=== PATIENT | female | born 1960 | race African-American/Black ===

== ENCOUNTER 2020-02-13 19:43 | Emergency (ER) | payer BC ==
[~2020-02-13] VITALS: Ht 160 cm; Wt 72.0 kg
[~2020-02-13 19:43] MED LIST: TRIA1CAP6 PO
[2020-02-13 21:30] LABS: CLARITY URINE CLOUDY (CLEAR); KETONES URINE TRACE (NEGATIVE); LEUKOCYTE ESTERASE URINE 2+ (NEGATIVE); NITRITE URINE POSITIVE (NEGATIVE); OCCULT BLOOD URINE 3+ (NEGATIVE); PROTEIN URINE 4+ (NEGATIVE); SPECIFIC GRAVITY URINE 1.018 (1.005-1.030); UROBILINOGEN URINE 0.2 E.U./dL (0.2-1.0)
[2020-02-13 21:35] LABS: COLOR URINE BLOODY (YELLOW)
[2020-02-13 22:10] VITALS: BP 149/79
== END 2020-02-13 22:11 | disposition home or self-care (01) ==
LOC: ER 19:43
DX: N30.91 Cystitis, unspecified with hematuria (principal); I10 Essential (primary) hypertension; Z85.820 Personal history of malignant melanoma of skin; Z90.49 Acquired absence of other specified parts of digestive tract; Z79.899 Other long term (current) drug therapy
CPT/HCPCS: 81003; 99283

== ENCOUNTER 2024-11-25 12:34 | Inpatient (IN) | payer BC ==
[~2024-11-25] VITALS: Ht 157.5 cm; Wt 66.7 kg
[2024-11-25] MEDS: MEROPENEM 500MG/50ML IV SCH (06:00)
[2024-11-25] MEDS ORDERED: VANCOMYCIN 1G PREMIX 200 ML IV ONE (12:45)
[2024-11-25 14:01] LABS: HEMOGLOBIN. 10.5 g/dL (12.0-16.0); MEAN CORPUSCULAR HEMOGLOBIN 27.2 pg (28.0-32.0); MEAN CORPUSCULAR HGB CONC 30.1 g/dL (31.0-37.0); MEAN CORPUSCULAR VOLUME 90.5 fL (81.0-99.0); MEAN PLATELET VOLUME 8.9 fl (7.4-10.4); PLATELET 248 x1000/uL (130-400); RED BLOOD CELL COUNT 3.87 mill/uL (4.2-5.4); RED CELL DISTRIBUTION WIDTH 26.4 % (11.6-14.6); WHITE BLOOD COUNT 12.7 x1000/uL (4.5-11.0)
[2024-11-25 14:05] LABS: DIFFERENTIAL COMMENT 1
[2024-11-25 14:10] LABS: CHLORIDE 94 mEq/L (98-107); SODIUM 130 mEq/L (136-145)
[2024-11-25] MEDS: SODIUM CHLORIDE 0.9% (SEPSIS BOLUS) IV ONE (14:10)
[2024-11-25 14:12] LABS: CALCIUM 8.5 mg/dL (8.7-10.4)
[2024-11-25 14:15] LABS: INR 2.6; PROTHROMBIN TIME 25.5 sec (9.6-11.0)
[2024-11-25 14:16] LABS: CREATININE 2.8 mg/dL (0.6-1.0); GLUCOSE 54 mg/dL (70-105)
[2024-11-25 14:17] LABS: UREA NITROGEN BLOOD 63 mg/dL (9-23)
[2024-11-25 14:26] LABS: CARBON DIOXIDE < 10 mEq/L (21-32); POTASSIUM 6.5 mEq/L (3.5-5.1)
[2024-11-25] MEDS ORDERED: FUROSEMIDE 100MG/10ML VIAL IV STA (14:44)
[2024-11-25] MEDS: MEROPENEM 1G/100ML 100 ML IV ONE (14:52)
[2024-11-25 15:05] LABS: NUCLEATED RED BLOOD CELLS 3 /100 WBC
[2024-11-25 15:08] LABS: ANISOCYTOSIS 3+; HYPOCHROMASIA 2+; PLATELET ESTIMATE NORMAL
[2024-11-25] MEDS: FUROSEMIDE 40MG/4ML VIAL IV NR (15:50)
[2024-11-25] MEDS: VANCOMYCIN 1G PREMIX 200 ML IV NR (15:50)
[2024-11-25] MEDS ORDERED: DOCUSATE SODIUM 100MG CAPSULE PO PRN (16:30)
[2024-11-25] MEDS ORDERED: MEROPENEM 1,000 MG in SODIUM CHLORIDE 0.9% 100 ML IV SCH (16:30)
[2024-11-25] MEDS ORDERED: IPRATROPIUM/ALBUTEROL 0.5-3(2.5)MG/3ML NEB HHN PRN (16:30)
[2024-11-25] MEDS ORDERED: HYDRALAZINE 20MG/ML VIAL IV PRN (16:30)
[2024-11-25] MEDS ORDERED: ACETAMINOPHEN 325MG TABLET PO PRN (16:30)
[2024-11-25] MEDS ORDERED: MAGNESIUM/ALUMINUM HYDROXIDE/SIMETHICONE 30ML UDC PO PRN (16:30)
[2024-11-25] MEDS ORDERED: MEROPENEM 500MG/50ML IV SCH (17:00)
[2024-11-25 17:11] LABS: CLARITY URINE CLOUDY (CLEAR); COLOR URINE YELLOW (YELLOW); GLUCOSE URINE NEGATIVE (NEGATIVE); KETONES URINE NEGATIVE (NEGATIVE); LEUKOCYTE ESTERASE URINE NEGATIVE (NEGATIVE); NITRITE URINE NEGATIVE (NEGATIVE); OCCULT BLOOD URINE TRACE (NEGATIVE); PROTEIN URINE 1+ (NEGATIVE); SPECIFIC GRAVITY URINE 1.013 (1.005-1.030)
[2024-11-25 17:13] LABS: SODIUM URINE RANDOM 44 mEq/L
[2024-11-25] MEDS: ALBUTEROL (0.083%) 2.5MG/3ML NEB HHN NR (17:15)
[2024-11-25] MEDS ORDERED: INSULIN REGULAR (HUMULIN R) 1000UNITS/10ML VIAL IV ONE (17:15)
[2024-11-25 17:22] LABS: BACTERIA URINE 1+; RBC URINE 0-2 /hpf (0-2); SQUAMOUS EPITHELIAL CELL URINE 1+ /lpf (RARE/1+); WBC URINE 0-2 /hpf (0-2); YEAST URINE NONE SEEN
[2024-11-25 17:27] LABS: OSMOLALITY URINE 346 mOsm/kg (500-850)
[2024-11-25] MEDS: CALCIUM CHLORIDE 1GM/10ML SYR IV ONE (17:52)
[2024-11-25] MEDS: DEXTROSE 50% WATER 50ML SYRINGE IV ONE ×2 (17:53→17:55)
[2024-11-25] MEDS: SODIUM BICARBONATE 8.4% 50MEQ/50ML SYR IV ONE (17:53)
[2024-11-25] MEDS: INSULIN REGULAR (HUMULIN R) 1000UNITS/10ML VIAL IV ONE (17:53)
[2024-11-25] MEDS ORDERED: IPRATROPIUM/ALBUTEROL 0.5-3(2.5)MG/3ML NEB HHN SCH (18:00)
[2024-11-25] MEDS: CALCIUM CHLORIDE 1GM/10ML SYR IV NR (18:12)
[2024-11-25] MEDS: DEXTROSE 50% WATER 50ML SYRINGE IV NR (18:12)
[2024-11-25] MEDS: INSULIN REGULAR (HUMULIN R) 1000UNITS/10ML VIAL IV NR (18:13)
[2024-11-25] MEDS: VANCOMYCIN 500MG/100ML IV NR (18:13)
[2024-11-25] MEDS: SODIUM BICARBONATE 8.4% 50MEQ/50ML SYR IV NR (18:13)
[2024-11-25] MEDS: DEXT 5%/0.9% NACL 1,000 ML IV SCH (18:28)
[2024-11-25] MEDS ORDERED: IPRATROPIUM BROMIDE (0.02%) 0.5MG/2.5ML NEB HHN PRN (18:30)
[2024-11-25 18:55] VITALS: PULSE 99; RESP 24; O2SAT 99
[2024-11-25] MEDS: IPRATROPIUM BROMIDE (0.02%) 0.5MG/2.5ML NEB HHN SCH (18:55)
[2024-11-25] MEDS: BUDESONIDE 0.5MG/2ML NEB HHN SCH (18:55)
[2024-11-25 22:00] VITALS: BP 108/66; PULSE 80; RESP 18; TEMP 35.7; TEMP 35.8; O2SAT 98
[2024-11-25] MEDS: GUAIFENESIN 200MG/10ML SUGAR FREE UDC PO PRN (22:31)
[2024-11-25] MEDS: MELATONIN 3MG TABLET PO PRN (22:31)
[2024-11-26] VITALS (7 sets, daily range): BP systolic 117–147; BP diastolic 52–66; PULSE 85–117; RESP 18–24; TEMP 35.4–36.2; O2SAT 95–99
[2024-11-26 00:39] LABS: CHLORIDE 99 mEq/L (98-107); POTASSIUM 5.4 mEq/L (3.5-5.1); SODIUM 133 mEq/L (136-145)
[2024-11-26 00:40] LABS: CALCIUM 8.8 mg/dL (8.7-10.4); CARBON DIOXIDE 14 mEq/L (21-32)
[2024-11-26 00:45] LABS: CREATININE 2.4 mg/dL (0.6-1.0); GLUCOSE 161 mg/dL (70-105)
[2024-11-26 00:46] LABS: LDL CHOLESTEROL 241 mg/dL (5-100); TRIGLYCERIDE 249 mg/dL (0-150); UREA NITROGEN BLOOD 59 mg/dL (9-23)
[2024-11-26 00:47] LABS: ALANINE AMINOTRANSFERASE 703 IU/L (10-49); ALBUMIN 3.3 g/dL (3.2-4.8); ASPARTATE AMINOTRANSFERASE > 1000 IU/L (<34); BILIRUBIN DIRECT 1.3 mg/dL (<=3.0); CHOLESTEROL 360 mg/dL (<200); CREATINE KINASE > 1300 IU/L (34-145); HDL CHOLESTEROL < 20 mg/dL (>65); PHOSPHORUS 6.6 mg/dL (2.5-4.9)
[2024-11-26 00:48] LABS: BILIRUBIN TOTAL 2.2 mg/dL (0.1-1.0); PROTEIN TOTAL 5.7 g/dL (6.0-8.3); T4 FREE 0.98 ng/dL (0.89-1.76)
[2024-11-26 01:02] LABS: HEPATITIS B SURFACE ANTIGEN NEGATIVE (Negative)
[2024-11-26 01:23] LABS: HEPATITIS C AB NON REACTIVE (Neg) (Negative)
[2024-11-26] MEDS: PANTOPRAZOLE 40MG DR TABLET PO SCH (06:24)
[2024-11-26] MEDS ORDERED: ALBUTEROL (0.083%) 2.5MG/3ML NEB HHN NR (11:15)
[2024-11-26 11:21] LABS: HEMATOCRIT. 34.2 % (36.0-48.0); HEMOGLOBIN. 11.1 g/dL (12.0-16.0); MEAN CORPUSCULAR HGB CONC 32.6 g/dL (31.0-37.0); MEAN PLATELET VOLUME 9.1 fl (7.4-10.4); PLATELET 183 x1000/uL (130-400); RED BLOOD CELL COUNT 3.99 mill/uL (4.2-5.4); RED CELL DISTRIBUTION WIDTH 26.5 % (11.6-14.6)
[2024-11-26 12:07] LABS: CREATINE KINASE MB FRACTION 0.9 ng/mL (0.5-3.6)
[2024-11-26 12:16] LABS: CREATINE KINASE 1649 IU/L (34-145)
[2024-11-26 12:28] LABS: TROPONIN I HIGH SENSITIVITY 484 ng/L (3.0-34)
[2024-11-26] MEDS: SODIUM POLYSTYRENE SULFONATE 15 G/60 ML BOT PO NR (12:46)
[2024-11-26] MEDS: CALCIUM CHLORIDE 1GM/10ML SYR IV NR (12:47)
[2024-11-26] MEDS: SODIUM BICARBONATE 8.4% 50MEQ/50ML SYR IV NR (12:47)
[2024-11-26] MEDS: INSULIN REGULAR (HUMULIN R) 1000UNITS/10ML VIAL IV NR (12:48)
[2024-11-26] MEDS: DEXTROSE 50% WATER 50ML SYRINGE IV NR (12:50)
[2024-11-26 13:12] LABS: DIFFERENTIAL COMMENT 1
[2024-11-26 13:14] LABS: MEAN CORPUSCULAR VOLUME 85.8 fL (81.0-99.0)
[2024-11-26] MEDS ORDERED: ONDANSETRON HCL 4MG/2ML INJ IV PRN (13:30)
[2024-11-26] MEDS: ALBUTEROL (0.083%) 2.5MG/3ML NEB HHN ONE (14:22)
[2024-11-26] MEDS: VANCOMYCIN 500MG/100ML IV NR (14:49)
[2024-11-26] MEDS: SUCRALFATE 1G TABLET PO SCH (17:22)
[2024-11-26] MEDS ORDERED: ALBUTEROL 6.7GM HFA INHALER ORI PRN (17:30)
[2024-11-26 21:07] LABS: ANISOCYTOSIS 2+; NUCLEATED RED BLOOD CELLS 3 /100 WBC; PLATELET ESTIMATE NORMAL
[2024-11-26 21:30] LABS: CHLORIDE 102 mEq/L (98-107); POTASSIUM 4.9 mEq/L (3.5-5.1); SODIUM 137 mEq/L (136-145)
[2024-11-26 21:31] LABS: CARBON DIOXIDE 13 mEq/L (21-32)
[2024-11-26 21:32] LABS: CALCIUM 7.7 mg/dL (8.7-10.4)
[2024-11-26 21:36] LABS: CREATINE KINASE MB FRACTION 0.7 ng/mL (0.5-3.6); CREATININE 2.1 mg/dL (0.6-1.0); GLUCOSE 199 mg/dL (70-105); UREA NITROGEN BLOOD 70 mg/dL (9-23)
[2024-11-26 21:38] LABS: ALANINE AMINOTRANSFERASE 669 IU/L (10-49); ALBUMIN 2.6 g/dL (3.2-4.8); CREATINE KINASE 1044 IU/L (34-145)
[2024-11-26 21:39] LABS: BILIRUBIN TOTAL 2.2 mg/dL (0.1-1.0); PROTEIN TOTAL 4.8 g/dL (6.0-8.3)
[2024-11-26 21:50] LABS: ASPARTATE AMINOTRANSFERASE 3465 IU/L (<34)
[2024-11-26 21:57] LABS: TROPONIN I HIGH SENSITIVITY 392 ng/L (3.0-34)
[2024-11-26] MEDS: SODIUM BICARBONATE 100 MEQ in SODIUM CHLORIDE 0.45% 900 ML IV SCH (23:00)
[2024-11-27] VITALS (8 sets, daily range): BP systolic 97–141; BP diastolic 55–67; PULSE 18–119; RESP 16–18; TEMP 35.6–37.3; O2SAT 95–98
[2024-11-27] MEDS: VANCOMYCIN 750MG/150ML (BAXTER) IV NR (00:30)
[2024-11-27 08:12] LABS: HEMATOCRIT 45.8 % (36.0-48.0); HEMOGLOBIN 14.3 g/dL (12.0-16.0); MEAN CORPUSCULAR HEMOGLOBIN 27.6 pg (28.0-32.0); MEAN CORPUSCULAR HGB CONC 31.3 g/dL (31.0-37.0); MEAN CORPUSCULAR VOLUME 88.3 fL (81.0-99.0); RED BLOOD CELL COUNT 5.18 mill/uL (4.2-5.4); RED CELL DISTRIBUTION WIDTH 26.5 % (11.6-14.6)
[2024-11-27 08:12] LABS: CALCIUM 7.4 mg/dL (8.7-10.4); CHLORIDE 100 mEq/L (98-107)
[2024-11-27 08:13] LABS: CARBON DIOXIDE 14 mEq/L (21-32); POTASSIUM 5.9 mEq/L (3.5-5.1); SODIUM 138 mEq/L (136-145)
[2024-11-27 08:17] LABS: CREATININE 2.6 mg/dL (0.6-1.0); GLUCOSE 91 mg/dL (70-105); IRON 115 ug/dL (50-170)
[2024-11-27 08:19] LABS: CREATINE KINASE 661 IU/L (34-145); UREA NITROGEN BLOOD 80 mg/dL (9-23)
[2024-11-27 08:19] LABS: CREATINE KINASE MB FRACTION 0.5 ng/mL (0.5-3.6)
[2024-11-27 08:20] LABS: PHOSPHORUS 6.6 mg/dL (2.5-4.9); TOTAL IRON BINDING CAPACITY 331 ug/dl (250-425)
[2024-11-27 08:20] LABS: ALANINE AMINOTRANSFERASE 742 IU/L (10-49); ASPARTATE AMINOTRANSFERASE > 1000 IU/L (<34); BILIRUBIN DIRECT 1.6 mg/dL (<=3.0); BILIRUBIN TOTAL 2.7 mg/dL (0.1-1.0); PROTEIN TOTAL 5.4 g/dL (6.0-8.3)
[2024-11-27 08:21] LABS: FOLIC ACID (FOLATE) SERUM > 20.00 ng/mL (>5.38)
[2024-11-27] MEDS ORDERED: CALCIUM GLUCONATE 1,000 MG in DEXT 5% WATER 90 ML IV STA (08:28)
[2024-11-27 08:33] LABS: VITAMIN B12 SERUM > 2000 pg/mL (211-911)
[2024-11-27] MEDS: INSULIN REGULAR (HUMULIN R) 1000UNITS/10ML VIAL IV NR (08:37)
[2024-11-27 09:17] LABS: FERRITIN > 8250 ng/mL (10-291)
[2024-11-27] MEDS: DEXTROSE 50% WATER 50ML SYRINGE IV NR (09:56)
[2024-11-27] MEDS: SODIUM BICARBONATE 8.4% 50MEQ/50ML SYR IV NR (09:56)
[2024-11-27] MEDS: PANTOPRAZOLE SODIUM 40 MG/VIAL IV SCH (09:57)
[2024-11-27] MEDS: CALCIUM GLUCONATE 1GM PREMIX 50 ML IV NR (09:57)
[2024-11-27] MEDS: SODIUM ZIRCONIUM CYCLOSILICATE 10GM/PACKET PO NR (09:57)
[2024-11-27 12:03] LABS: PLATELET 129 x1000/uL (130-400)
[2024-11-27 18:56] LABS: AMMONIA 35 uMol/L (<32)
[2024-11-28] VITALS (84 sets, daily range): BP systolic 46–179; BP diastolic 18–114; PULSE 71–107; RESP 16–32; TEMP 36–36.7; O2SAT 97–100
[2024-11-28] MEDS: DEXTROSE 50% WATER 50ML SYRINGE IV ONE (04:32)
[2024-11-28] MEDS: GLUCAGON,HUMAN RECOMBINANT 1MG/VIAL ONE (04:37)
[2024-11-28 04:51] LABS: BG BASE EXCESS -19.6 mmol/L (-2.0-3.0); BG CARBOXYHEMOGLOBIN 0.5 % (0.5-1.5); BG DEOXYHEMOGLOBIN 0.2 % (0.0-5.0); BG FRACTION INSPIRED OXYGEN 100; BG HCO3 ACT 6.9 mmol/L (21.0-28.0); BG METHEMOGLOBIN 0.3 % (0.5-1.5); BG OXYGEN SATURATION 99.8 % (94.0-98.0); BG PCO2 19.2 mmHg (32.0-45.0); BG PH 7.173 (7.350-7.450); BG PO2 301.3 mmHg (83.0-108.0); BG SAMPLE SITE RIGHT RADIAL; BG TOTAL HEMOGLOBIN 11.2 g/dL (12.0-16.0); BG VENT MODE MASK - NRB
[2024-11-28] MEDS: SODIUM BICARBONATE 8.4% 50MEQ/50ML SYR IV NR (05:16)
[2024-11-28 06:30] LABS: BG BASE EXCESS -13.5 mmol/L (-2.0-3.0); BG CARBOXYHEMOGLOBIN 0.7 % (0.5-1.5); BG DEOXYHEMOGLOBIN 2.8 % (0.0-5.0); BG FRACTION INSPIRED OXYGEN 50; BG HCO3 ACT 9.3 mmol/L (21.0-28.0); BG METHEMOGLOBIN 0.1 % (0.5-1.5); BG OXYGEN SATURATION 97.2 % (94.0-98.0); BG OXYHEMOGLOBIN 96.4 % (94.0-98.0); BG PCO2 16.5 mmHg (32.0-45.0); BG PH 7.369 (7.350-7.450); BG PO2 103.3 mmHg (83.0-108.0); BG SAMPLE SITE RIGHT RADIAL; BG VENT MODE VENT - AC
[2024-11-28] MEDS ORDERED: DEXT 10% WATER 1,000 ML IV SCH ×2 (06:30→06:45)
[2024-11-28] MEDS: NOREPINEPHRINE 8MG/250ML PMX 250 ML IV PRN (06:56)
[2024-11-28] MEDS: BLOOD SUGAR DIAGNOSTIC STRIP TEST SCH ×2 (06:56→17:58)
[2024-11-28] MEDS: PHENYLEPHRINE 50MG/250ML PMX 250 ML IV PRN (07:52)
[2024-11-28] MEDS: FAMOTIDINE 20MG/2ML VIAL IV SCH (09:42)
[2024-11-28] MEDS: DEXTROSE 5% WATER 1,000 ML IV SCH (09:42)
[2024-11-28] MEDS: DEXAMETHASONE 4MG/ML 1ML VIAL IV SCH (09:42)
[2024-11-28] MEDS: DEXMEDETOMIDINE 400 MCG/100 ML 100 ML IV PRN (09:57)
[2024-11-28 10:36] LABS: HEMOGLOBIN. 12.8 g/dL (12.0-16.0); MEAN CORPUSCULAR HEMOGLOBIN 28.1 pg (28.0-32.0); MEAN CORPUSCULAR HGB CONC 30.4 g/dL (31.0-37.0); MEAN CORPUSCULAR VOLUME 92.3 fL (81.0-99.0); RED BLOOD CELL COUNT 4.55 mill/uL (4.2-5.4); RED CELL DISTRIBUTION WIDTH 27.3 % (11.6-14.6)
[2024-11-28 10:42] LABS: PROTHROMBIN TIME 38.8 sec (9.6-11.0)
[2024-11-28 10:46] LABS: DIFFERENTIAL COMMENT 1
[2024-11-28 10:53] LABS: CHLORIDE 98 mEq/L (98-107); POTASSIUM 4.9 mEq/L (3.5-5.1); SODIUM 139 mEq/L (136-145)
[2024-11-28 10:54] LABS: CALCIUM 6.7 mg/dL (8.7-10.4)
[2024-11-28 10:59] LABS: GLUCOSE 123 mg/dL (70-105); UREA NITROGEN BLOOD 83 mg/dL (9-23)
[2024-11-28 11:00] LABS: ALBUMIN 2.6 g/dL (3.2-4.8); AMYLASE 323 IU/L (30-118)
[2024-11-28 11:01] LABS: BILIRUBIN DIRECT 2.2 mg/dL (<=3.0); BILIRUBIN TOTAL 3.4 mg/dL (0.1-1.0); PROTEIN TOTAL 4.5 g/dL (6.0-8.3)
[2024-11-28 11:12] LABS: ALANINE AMINOTRANSFERASE 1334 IU/L (10-49); ASPARTATE AMINOTRANSFERASE 5616 IU/L (<34)
[2024-11-28] MEDS: SODIUM BICARBONATE 100 MEQ in DEXTROSE 5% WATER 900 ML IV SCH (11:12)
[2024-11-28 11:15] LABS: INR 4.1
[2024-11-28 11:16] LABS: LACTIC ACID 17.5 mmol/L (0.4-2.0)
[2024-11-28 11:21] LABS: CREATININE 3.6 mg/dL (0.6-1.0)
[2024-11-28 11:22] LABS: CARBON DIOXIDE < 10 mEq/L (21-32)
[2024-11-28] MEDS: VASOPRESSIN 20 UNIT in SODIUM CHLORIDE 0.9% 99 ML IV PRN (11:31)
[2024-11-28 11:36] LABS: HEPATITIS B SURFACE ANTIGEN NEGATIVE (Negative)
[2024-11-28 11:56] LABS: HEPATITIS A AB IGM NEGATIVE (Negative)
[2024-11-28 11:57] LABS: HEPATITIS B CORE AB IGM NEGATIVE (Negative); HEPATITIS C AB NON REACTIVE (Neg) (Negative)
[2024-11-28] MEDS: ALBUMIN HUMAN 25GM/100ML (25%) IV SCH (12:34)
[2024-11-28] MEDS: CALCIUM CHLORIDE 1GM/10ML SYR IV SCH (12:34)
[2024-11-28] MEDS: PHYTONADIONE 10 MG in DEXTROSE 5% WATER 49 ML IV SCH (12:34)
[2024-11-28 12:53] LABS: NUCLEATED RED BLOOD CELLS 15 /100 WBC
[2024-11-28 12:56] LABS: ANISOCYTOSIS 4+; HYPOCHROMASIA 1+; PLATELET ESTIMATE DECREASED
[2024-11-28 12:57] LABS: MEAN PLATELET VOLUME 10.4 fl (7.4-10.4)
[2024-11-28 12:58] LABS: PLATELET 69 x1000/uL (130-400)
[2024-11-28] MEDS ORDERED: ALBUMIN HUMAN 25GM/100ML (25%) IV SCH (14:00)
[2024-11-28] MEDS: MEROPENEM 500MG/50ML 50 ML IV SCH (17:31)
[2024-11-28] MEDS: NOREPINEPHRINE 32 MG in DEXT 5% WATER 218 ML IV PRN (17:33)
[2024-11-29] VITALS (107 sets, daily range): BP systolic 63–182; BP diastolic 30–156; PULSE 85–116; RESP 14–39; TEMP 35.6–37.2; O2SAT 78–100
[2024-11-29] MEDS: INSULIN LISPRO 100 UNITS/ML SUBCUT SCH (00:05)
[2024-11-29] MEDS ORDERED: FENTANYL 2500MCG/250ML PMX 250 ML IV ONE (01:00)
[2024-11-29] MEDS ORDERED: FENTANYL CITRATE 2,500 MCG in SODIUM CHLORIDE 0.9% 200 ML IV PRN (01:15)
[2024-11-29 05:56] LABS: CHLORIDE 96 mEq/L (98-107); POTASSIUM 5.9 mEq/L (3.5-5.1); SODIUM 135 mEq/L (136-145)
[2024-11-29 05:59] LABS: CALCIUM 6.7 mg/dL (8.7-10.4)
[2024-11-29 06:04] LABS: CREATININE 3.6 mg/dL (0.6-1.0); GLUCOSE 217 mg/dL (70-105); PROTEIN TOTAL 4.4 g/dL (6.0-8.3); UREA NITROGEN BLOOD 80 mg/dL (9-23)
[2024-11-29 06:06] LABS: ALBUMIN 2.8 g/dL (3.2-4.8); BILIRUBIN DIRECT 2.9 mg/dL (<=3.0); BILIRUBIN TOTAL 4.2 mg/dL (0.1-1.0)
[2024-11-29 06:10] LABS: HEMATOCRIT 33.2 % (36.0-48.0); HEMOGLOBIN 9.5 g/dL (12.0-16.0); MEAN CORPUSCULAR HEMOGLOBIN 28.7 pg (28.0-32.0); MEAN CORPUSCULAR HGB CONC 28.5 g/dL (31.0-37.0); MEAN CORPUSCULAR VOLUME 100.8 fL (81.0-99.0); RED CELL DISTRIBUTION WIDTH 28.3 % (11.6-14.6)
[2024-11-29 06:17] LABS: ALANINE AMINOTRANSFERASE 1249 IU/L (10-49)
[2024-11-29 06:23] LABS: ASPARTATE AMINOTRANSFERASE > 6000 IU/L (<34)
[2024-11-29 06:26] LABS: CARBON DIOXIDE < 10 mEq/L (21-32)
[2024-11-29] MEDS: SODIUM ZIRCONIUM CYCLOSILICATE 10GM/PACKET PO NR (06:55)
[2024-11-29] MEDS: SODIUM BICARBONATE 8.4% 50MEQ/50ML SYR IV NR ×2 (06:55→10:31)
[2024-11-29] MEDS: DEXTROSE 50% WATER 50ML SYRINGE IV NR (06:55)
[2024-11-29] MEDS: INSULIN REGULAR (HUMULIN R) 1000UNITS/10ML VIAL IV NR (06:56)
[2024-11-29] MEDS: CALCIUM CHLORIDE 1GM/10ML SYR IV NR (06:56)
[2024-11-29] MEDS ORDERED: PHYTONADIONE 10MG/ML INJ SUBCUT SCH (09:00)
[2024-11-29] MEDS: PHYTONADIONE 10 MG in DEXTROSE 5% WATER 50 ML IV SCH (09:09)
[2024-11-29 09:31] LABS: BG CARBOXYHEMOGLOBIN 0.2 % (0.5-1.5); BG DEOXYHEMOGLOBIN 3.1 % (0.0-5.0); BG FRACTION INSPIRED OXYGEN 40; BG HCO3 ACT 7.8 mmol/L (21.0-28.0); BG METHEMOGLOBIN 0.3 % (0.5-1.5); BG OXYGEN SATURATION 96.9 % (94.0-98.0); BG OXYHEMOGLOBIN 96.4 % (94.0-98.0); BG PCO2 19.3 mmHg (32.0-45.0); BG PH 7.223 (7.350-7.450); BG PO2 108.7 mmHg (83.0-108.0); BG SAMPLE SITE RIGHT RADIAL; BG TOTAL HEMOGLOBIN 9.6 g/dL (12.0-16.0); BG VENT MODE VENT - AC
[2024-11-29 10:07] LABS: PROTHROMBIN TIME 47.6 sec (9.6-11.0)
[2024-11-29 10:11] LABS: INR 5.2
[2024-11-29 17:12] LABS: D-DIMER > 35.20 mg/L FEU (<0.50)
[2024-11-29 17:19] LABS: FIBRINOGEN 84 mg/dL (200-400)
[2024-11-29 18:14] LABS: LACTATE DEHYDROGENASE > 4500 IU/L (120-246)
[2024-11-29] MEDS: HYDROCORTISONE SOD SUCCINATE 100 MG/2 ML VIAL IV SCH (21:47)
[2024-11-29] MEDS: MIDAZOLAM HCL 2 MG/2 ML VIAL IV NR (23:30)
[2024-11-29] MEDS ORDERED: FENTANYL 2500MCG/250ML PMX 250 ML IV PRN (23:30)
[2024-11-29] MEDS: PROPOFOL 10MG/ML 100ML 100 ML IV SCH (23:41)
[2024-11-29] MEDS: FENTANYL CITRATE 2,500 MCG in SODIUM CHLORIDE 0.9% 200 ML IV PRN (23:54)
[2024-11-30] VITALS (106 sets, daily range): BP systolic 41–147; BP diastolic 25–99; PULSE 29–149; RESP 18–34; TEMP 36.3–37.5; O2SAT 53–100
[2024-11-30 00:51] LABS: BG BASE EXCESS -10.7 mmol/L (-2.0-3.0); BG CARBOXYHEMOGLOBIN 0.4 % (0.5-1.5); BG DEOXYHEMOGLOBIN 2.4 % (0.0-5.0); BG FRACTION INSPIRED OXYGEN 40; BG HCO3 ACT 10.8 mmol/L (21.0-28.0); BG METHEMOGLOBIN 0.1 % (0.5-1.5); BG OXYGEN SATURATION 97.6 % (94.0-98.0); BG OXYHEMOGLOBIN 97.1 % (94.0-98.0); BG PCO2 15.4 mmHg (32.0-45.0); BG PH 7.463 (7.350-7.450); BG PO2 101.8 mmHg (83.0-108.0); BG SAMPLE SITE LEFT BRACHIAL; BG TOTAL HEMOGLOBIN 10.7 g/dL (12.0-16.0); BG VENT MODE VENT - AC
[2024-11-30 01:09] LABS: HEMATOCRIT. 33.3 % (36.0-48.0); MEAN CORPUSCULAR HEMOGLOBIN 28.6 pg (28.0-32.0); MEAN CORPUSCULAR HGB CONC 30.1 g/dL (31.0-37.0); MEAN CORPUSCULAR VOLUME 94.9 fL (81.0-99.0); MEAN PLATELET VOLUME 10.1 fl (7.4-10.4); RED BLOOD CELL COUNT 3.51 mill/uL (4.2-5.4)
[2024-11-30 01:12] LABS: PLATELET 26 x1000/uL (130-400)
[2024-11-30 01:13] LABS: DIFFERENTIAL COMMENT 1
[2024-11-30 01:18] LABS: CHLORIDE 93 mEq/L (98-107)
[2024-11-30 01:19] LABS: CARBON DIOXIDE 12 mEq/L (21-32); POTASSIUM 5.4 mEq/L (3.5-5.1); SODIUM 135 mEq/L (136-145)
[2024-11-30 01:20] LABS: CALCIUM 6.5 mg/dL (8.7-10.4)
[2024-11-30 01:24] LABS: CREATININE 3.5 mg/dL (0.6-1.0); GLUCOSE 211 mg/dL (70-105)
[2024-11-30 01:25] LABS: UREA NITROGEN BLOOD 77 mg/dL (9-23)
[2024-11-30 01:26] LABS: ALANINE AMINOTRANSFERASE > 1100 IU/L (10-49); ALBUMIN 2.8 g/dL (3.2-4.8); ASPARTATE AMINOTRANSFERASE > 1000 IU/L (<34)
[2024-11-30 01:27] LABS: BILIRUBIN TOTAL 5.9 mg/dL (0.1-1.0); PROTEIN TOTAL 4.3 g/dL (6.0-8.3)
[2024-11-30 02:34] LABS: NUCLEATED RED BLOOD CELLS 30 /100 WBC
[2024-11-30 02:35] LABS: ANISOCYTOSIS 3+; PLATELET ESTIMATE MARKEDLY DECREASED
[2024-11-30 05:16] LABS: PROTHROMBIN TIME 3.1 sec (9.6-11.0)
[2024-11-30 05:30] LABS: INR 3.5; PARTIAL THROMBOPLASTIN TIME 105.8 sec (23.4-31.0)
[2024-11-30 06:16] LABS: HEMATOCRIT 31.8 % (36.0-48.0); HEMOGLOBIN 10.1 g/dL (12.0-16.0); MEAN CORPUSCULAR HEMOGLOBIN 28.5 pg (28.0-32.0); MEAN CORPUSCULAR HGB CONC 31.8 g/dL (31.0-37.0); MEAN CORPUSCULAR VOLUME 89.8 fL (81.0-99.0); RED BLOOD CELL COUNT 3.55 mill/uL (4.2-5.4); RED CELL DISTRIBUTION WIDTH 27.2 % (11.6-14.6); WHITE BLOOD COUNT 11.4 x1000/uL (4.5-11.0)
[2024-11-30] MEDS: PHYTONADIONE 10 MG in DEXTROSE 5% WATER 49 ML IV NR (06:42)
[2024-11-30] MEDS: CALCIUM GLUCONATE 1GM PREMIX 50 ML IV NR (06:57)
[2024-11-30 07:00] LABS: CHLORIDE 88 mEq/L (98-107); POTASSIUM 5.3 mEq/L (3.5-5.1); SODIUM 135 mEq/L (136-145)
[2024-11-30 07:01] LABS: CALCIUM 6.4 mg/dL (8.7-10.4); CARBON DIOXIDE 15 mEq/L (21-32)
[2024-11-30 07:03] LABS: AMMONIA 29 uMol/L (<32)
[2024-11-30 07:06] LABS: CREATININE 3.4 mg/dL (0.6-1.0); GLUCOSE 245 mg/dL (70-105); TRIGLYCERIDE 200 mg/dL (0-150); UREA NITROGEN BLOOD 78 mg/dL (9-23)
[2024-11-30 07:08] LABS: ALANINE AMINOTRANSFERASE > 1100 IU/L (10-49); ALBUMIN 2.6 g/dL (3.2-4.8); ASPARTATE AMINOTRANSFERASE > 1000 IU/L (<34); BILIRUBIN DIRECT 4.1 mg/dL (<=3.0); PROTEIN TOTAL 4.1 g/dL (6.0-8.3)
[2024-11-30 07:54] LABS: PLATELET 23 x1000/uL (130-400)
[2024-11-30 08:46] LABS: BG BASE EXCESS -12.2 mmol/L (-2.0-3.0); BG CARBOXYHEMOGLOBIN 0.1 % (0.5-1.5); BG DEOXYHEMOGLOBIN 1.8 % (0.0-5.0); BG FRACTION INSPIRED OXYGEN 40; BG HCO3 ACT 10.7 mmol/L (21.0-28.0); BG METHEMOGLOBIN 0.3 % (0.5-1.5); BG OXYGEN SATURATION 98.2 % (94.0-98.0); BG OXYHEMOGLOBIN 97.8 % (94.0-98.0); BG PCO2 17.7 mmHg (32.0-45.0); BG PH 7.398 (7.350-7.450); BG PO2 112.6 mmHg (83.0-108.0); BG SAMPLE SITE RIGHT RADIAL; BG TOTAL HEMOGLOBIN 10.1 g/dL (12.0-16.0); BG VENT MODE VENT - AC
[2024-11-30] MEDS: LIDOCAINE HCL 1% 10 MG/ML 10ML VIAL ONE (15:04)
[2024-11-30] MEDS: PANTOPRAZOLE SODIUM 40 MG/VIAL IV SCH (20:07)
[2024-11-30] MEDS: ALBUMIN HUMAN 25GM/500ML (5%) IV NR (22:30)
[2024-11-30] MEDS: SODIUM BICARBONATE 8.4% 50MEQ/50ML SYR IV NR (22:30)
[2024-12-01] VITALS (121 sets, daily range): BP systolic 53–148; BP diastolic 25–117; PULSE 98–130; RESP 0–33; TEMP 36.1–36.9; O2SAT 0–100
[2024-12-01] MEDS: SODIUM BICARBONATE 150 MEQ in DEXTROSE 5% WATER 850 ML IV SCH (00:41)
[2024-12-01] MEDS: EPINEPHRINE 5 MG in SODIUM CHLORIDE 0.9% 245 ML IV PRN (00:41)
[2024-12-01] MEDS: PHENYLEPHRINE 100 MG in DEXT 5% WATER 240 ML IV PRN (08:47)
[2024-12-01] MEDS: EPINEPHRINE 10 MG in SODIUM CHLORIDE 0.9% 240 ML IV PRN (08:48)
[2024-12-01 09:50] LABS: POTASSIUM 5.8 mEq/L (3.5-5.1)
[2024-12-01 09:56] LABS: CREATININE 3.4 mg/dL (0.6-1.0)
[2024-12-01 10:02] LABS: BG BASE EXCESS -21.4 mmol/L (-2.0-3.0); BG CARBOXYHEMOGLOBIN 1.1 % (0.5-1.5); BG DEOXYHEMOGLOBIN 34.2 % (0.0-5.0); BG FRACTION INSPIRED OXYGEN 100; BG HCO3 ACT 8.2 mmol/L (21.0-28.0); BG METHEMOGLOBIN 0.4 % (0.5-1.5); BG OXYGEN SATURATION 65.3 % (94.0-98.0); BG OXYHEMOGLOBIN 64.3 % (94.0-98.0); BG PCO2 33.1 mmHg (32.0-45.0); BG PH 7.011 (7.350-7.450); BG SAMPLE SITE LEFT BRACHIAL; BG TOTAL HEMOGLOBIN 7.9 g/dL (12.0-16.0); BG VENT MODE VENT - AC
[2024-12-01 10:06] LABS: HEMATOCRIT 25.3 % (36.0-48.0); HEMOGLOBIN 7.1 g/dL (12.0-16.0); MEAN CORPUSCULAR HEMOGLOBIN 28.2 pg (28.0-32.0); MEAN CORPUSCULAR HGB CONC 27.9 g/dL (31.0-37.0); MEAN CORPUSCULAR VOLUME 100.9 fL (81.0-99.0); RED BLOOD CELL COUNT 2.51 mill/uL (4.2-5.4); RED CELL DISTRIBUTION WIDTH 28.8 % (11.6-14.6); WHITE BLOOD COUNT 5.9 x1000/uL (4.5-11.0)
[2024-12-01 10:22] LABS: PROTHROMBIN TIME 42.2 sec (9.6-11.0)
[2024-12-01 10:26] LABS: INR 4.5
[2024-12-01 10:42] LABS: CALCIUM 5.5 mg/dL (8.7-10.4)
[2024-12-01] MEDS: SODIUM BICARBONATE 8.4% 50MEQ/50ML SYR IV NR (11:29)
[2024-12-01] MEDS: CALCIUM CHLORIDE 1GM/10ML SYR IV NR (11:29)
[2024-12-01] MEDS: DEXTROSE 50% WATER 50ML SYRINGE IV PRN (11:45)
[2024-12-01 12:03] LABS: PLATELET 27 x1000/uL (130-400)
[2024-12-01 12:54] LABS: CREATINE KINASE 1693 IU/L (34-145)
[2024-12-01] MEDS: DOPAMINE 800MG PREMIX (DOUBLE) 250 ML IV PRN (18:23)
[2024-12-01] MEDS: EPINEPHRINE 20 MG in SODIUM CHLORIDE 0.9% 480 ML IV PRN (18:44)
[2024-12-02] VITALS (57 sets, daily range): BP systolic 30–113; BP diastolic 15–76; PULSE 0–126; RESP 19–26; TEMP 33.8916–36.4; O2SAT 0–98
[2024-12-02] MEDS: SODIUM BICARBONATE 8.4% 50MEQ/50ML SYR IV NR ×2 (00:57→08:03)
[2024-12-02 06:21] LABS: MEAN CORPUSCULAR HEMOGLOBIN 29.2 pg (28.0-32.0); MEAN CORPUSCULAR VOLUME 107.9 fL (81.0-99.0); RED BLOOD CELL COUNT 1.68 mill/uL (4.2-5.4); RED CELL DISTRIBUTION WIDTH 31.3 % (11.6-14.6)
[2024-12-02 06:30] LABS: CHLORIDE 83 mEq/L (98-107); SODIUM 137 mEq/L (136-145)
[2024-12-02 06:34] LABS: CREATININE 3.5 mg/dL (0.6-1.0)
[2024-12-02 06:35] LABS: GLUCOSE 234 mg/dL (70-105)
[2024-12-02 06:36] LABS: ALANINE AMINOTRANSFERASE 1002 IU/L (10-49); ALBUMIN 1.4 g/dL (3.2-4.8)
[2024-12-02 06:37] LABS: BILIRUBIN DIRECT 3.5 mg/dL (<=3.0); BILIRUBIN TOTAL 4.8 mg/dL (0.1-1.0); PROTEIN TOTAL 2.2 g/dL (6.0-8.3); UREA NITROGEN BLOOD 62 mg/dL (9-23)
[2024-12-02 06:42] LABS: DIFFERENTIAL COMMENT 1
[2024-12-02 06:49] LABS: HEMATOCRIT. 18.1 % (36.0-48.0); HEMOGLOBIN. 4.9 g/dL (12.0-16.0); PLATELET 23 x1000/uL (130-400); WHITE BLOOD COUNT 1.9 x1000/uL (4.5-11.0)
[2024-12-02 06:52] LABS: ASPARTATE AMINOTRANSFERASE > 6000 IU/L (<34)
[2024-12-02 06:55] LABS: CARBON DIOXIDE < 10 mEq/L (21-32); POTASSIUM 6.9 mEq/L (3.5-5.1)
[2024-12-02] MEDS ORDERED: CALCIUM CHLORIDE 1GM/10ML SYR IV ONE (07:49)
[2024-12-02] MEDS: DEXTROSE 50% WATER 50ML SYRINGE IV NR (08:03)
[2024-12-02 08:04] LABS: PROTHROMBIN TIME 53.7 sec (9.6-11.0)
[2024-12-02] MEDS: INSULIN REGULAR (HUMULIN R) 1000UNITS/10ML VIAL IV NR (08:04)
[2024-12-02 08:12] LABS: FIBRINOGEN < 50 mg/dL (200-400); INR 5.8
[2024-12-02] MEDS: PHYTONADIONE 10 MG in DEXTROSE 5% WATER 49 ML IV NR (09:28)
[2024-12-02 09:54] LABS: BG FRACTION INSPIRED OXYGEN 100; BG HCO3 ACT 9.7 mmol/L (21.0-28.0); BG PCO2 43.4 mmHg (32.0-45.0); BG PH 6.968 (7.350-7.450); BG SAMPLE SITE LEFT FEMORAL; BG TOTAL HEMOGLOBIN < 4.5 g/dL (12.0-16.0); BG TOTAL RESPIRATORY RATE 26 b/min; BG VENT MODE VENT - AC
[2024-12-02 11:01] LABS: PLATELET 46 x1000/uL (130-400)
[2024-12-02 11:56] LABS: ANISOCYTOSIS 3+; NUCLEATED RED BLOOD CELLS 78 /100 WBC; PLATELET ESTIMATE MARKEDLY DECREASED
== END 2024-12-02 09:58 | DRG 870 ==
LOC: ER 12:34 → EDBEDREQ 14:01 → EDBEDREQTM 14:01 → 5WST 14:36 → EDBEDREQTM 14:39 → EDBEDREQSVC 14:39 → MICUNO 11-28 05:08
PROVIDERS: ADMIT Internal Medicine; ATTEND Internal Medicine
PROC: 5A1955Z Respiratory Ventilation, Greater than 96 Consecutive Hours (ICD-10-PCS; 2024-11-28)
PROC: 0BH18EZ Insertion of Endotracheal Airway into Trachea, Via Natural or Artificial Opening Endoscopic (ICD-10-PCS; 2024-11-28)
PROC: 06HY33Z Insertion of Infusion Device into Lower Vein, Percutaneous Approach (ICD-10-PCS; 2024-11-28)
PROC: B54BZZA Ultrasonography of Right Lower Extremity Veins, Guidance (ICD-10-PCS; 2024-11-28)
PROC: 30233K1 Transfusion of Nonautologous Frozen Plasma into Peripheral Vein, Percutaneous Approach (ICD-10-PCS; principal; 2024-11-30)
PROC: 30233R1 Transfusion of Nonautologous Platelets into Peripheral Vein, Percutaneous Approach (ICD-10-PCS; 2024-11-30)
PROC: 30233M1 Transfusion of Nonautologous Plasma Cryoprecipitate into Peripheral Vein, Percutaneous Approach (ICD-10-PCS; 2024-11-30)
PROC: 06HY33Z Insertion of Infusion Device into Lower Vein, Percutaneous Approach (ICD-10-PCS; 2024-11-30)
PROC: B54CZZA Ultrasonography of Left Lower Extremity Veins, Guidance (ICD-10-PCS; 2024-11-30)
PROC: 30233N1 Transfusion of Nonautologous Red Blood Cells into Peripheral Vein, Percutaneous Approach (ICD-10-PCS; 2024-12-01)
PROC: 5A12012 Performance of Cardiac Output, Single, Manual (ICD-10-PCS; 2024-12-02)
DX: A41.89 Other specified sepsis (principal); L89.153 Pressure ulcer of sacral region, stage 3; N17.0 Acute kidney failure with tubular necrosis; U07.1 COVID-19; R65.21 Severe sepsis with septic shock; G92.8 Other toxic encephalopathy; I21.A1 Myocardial infarction type 2; D65 Disseminated intravascular coagulation [defibrination syndrome]; J96.01 Acute respiratory failure with hypoxia; K72.00 Acute and subacute hepatic failure without coma; K76.7 Hepatorenal syndrome; E87.20 Acidosis, unspecified; E87.1 Hypo-osmolality and hyponatremia; C90.00 Multiple myeloma not having achieved remission; M62.82 Rhabdomyolysis; I13.2 Hypertensive heart and chronic kidney disease with heart failure and with stage 5 chronic kidney disease, or end stage renal disease; K92.0 Hematemesis; E87.5 Hyperkalemia; E86.0 Dehydration; E87.6 Hypokalemia; D64.9 Anemia, unspecified; Z88.8 Allergy status to other drugs, medicaments and biological substances; K21.9 Gastro-esophageal reflux disease without esophagitis; Z74.01 Bed confinement status; Z88.0 Allergy status to penicillin; E78.1 Pure hyperglyceridemia; E83.39 Other disorders of phosphorus metabolism; E83.51 Hypocalcemia; I50.9 Heart failure, unspecified; N18.9 Chronic kidney disease, unspecified; R32 Unspecified urinary incontinence; Z78.9 Other specified health status; Z86.2 Personal history of diseases of the blood and blood-forming organs and certain disorders involving the immune mechanism; Z86.74 Personal history of sudden cardiac arrest; Z90.49 Acquired absence of other specified parts of digestive tract; Z91.199 Patient's noncompliance with other medical treatment and regimen due to unspecified reason; Z99.2 Dependence on renal dialysis; E16.2 Hypoglycemia, unspecified; R63.4 Abnormal weight loss; R73.9 Hyperglycemia, unspecified; Z68.28 Body mass index [BMI] 28.0-28.9, adult; J45.909 Unspecified asthma, uncomplicated; I44.4 Left anterior fascicular block
CPT/HCPCS: 31500; 36415; 36556; 36600; 71045; 74176; 76700; 76937; 80048; 80053; 80061; 80076; 80202; 81003; 82010; 82024; 82105; 82140; 82150; 82330; 82375; 82533; 82550; 82553; 82607; 82728; 82746; 82805; 82962; 83036; 83520; 83540; 83550; 83605; 83615; 83735; 83880; 83930; 83935; 84100; 84132; 84145; 84300; 84439; 84478; 84484; 85025; 85027; 85044; 85049; 85362; 85379; 85384; 86038; 86705; 86709; 86850; 86900; 86920; 86927; 87340; 87426; 93005; 93970; 94002; 94003; 94070; 94640; 99285; A4606; C1752; J0610; J1100; J1265; J1610; J1720; J1815; J1940; J2003; J2185; J2250; J2371; J2405; J2470; J2704; J3370; J3430; J3490; J7030; J7040; J7050; J7060; J7070; J7626; P9012; P9016; P9017; P9034; P9041; P9047; Q9957